=== PATIENT | female | born 1930 | race Hispanic/Latino ===

== ENCOUNTER 2018-05-13 09:54 | Outpatient (CLI) | payer MEDICARE | END 2018-05-13 09:55 | disposition home or self-care (01) | LOC: C.PAT 09:54 | DX: M25.561 Pain in right knee (principal); M25.661 Stiffness of right knee, not elsewhere classified; M17.11 Unilateral primary osteoarthritis, right knee ==

== ENCOUNTER 2018-05-19 11:49 | Outpatient (CLI) | payer MEDICARE | END 2018-05-19 11:50 | disposition home or self-care (01) | LOC: C.PAT 11:49 | DX: Z01.818 Encounter for other preprocedural examination (principal) ==

== ENCOUNTER 2018-05-21 08:50 | Inpatient (IN) | payer MEDICARE | END 2018-05-26 13:51 | LOC: C.9S 08:50 → C.6T 17:45 | DX: M17.10 Unilateral primary osteoarthritis, unspecified knee (principal); M25.661 Stiffness of right knee, not elsewhere classified; M25.561 Pain in right knee ==